=== PATIENT | male | born 1980 | race Caucasian/White ===

== ENCOUNTER → 2019-01-28 09:54 | Outpatient (CLI) | payer BC ==
[2015-12-22 23:35] VITALS: BMI 37.3
[~2019-01-28 09:54] MED LIST: BAYER CHEWABLE81 MG PO; IBUPROFEN400 MG PO; MOBIC7.5 MG PO; PLAVIX75 MG PO; PRILOSEC10 M1 PO
--- NOTE | 2019-02-01 13:55 | EC ---
PATIENT:FAIZAN CORTEZ JR DATE OF SERVICE: 01/28/19 SEX: M MEDICAL RECORD: [id number] DATE OF : [birth year] LOCATION:[facility] AGE OF PATIENT: 38 ADMISSION DATE: 01/28/19 REFERRING PHYSICIAN: INTERPRETING PHYSICIAN: TIAGO ONEAL MD ECHOCARDIOGRAM REPORT ECHO CHARGES 4 ECHO COMPLETE Date: 01/28/19 CLINICAL DIAGNOSIS: CAD ECHOCARDIOGRAPHIC MEASUREMENTS (adult normal given) AC root (d.<3.7cm) 3.9 cm LV Septum d (<1.2 cm> 1.5 cm Valve Excursion 1.9 cm LV Septum (systole) 1.6 cm Left Atria (s.<4.0cm> 4.2 cm LVPW d(<1.2cm) 1.5 cm RV (d.<2.3cm) 4.0 cm LVPW (sytole) 1.7 cm LV diastole(<5.6CM) 5.1 cm MV E-F(>70mm/sec) cm LV systole 3.5 cm LVOT Diameter 2.1 cm MV exc.(>10mm) 2.0 cm Est.ejection fraction (50-75%) % DOPPLER: LVIT cm/sec A 79.0 cm/sec E 104 cm/sec LA cm/sec RVSP 18 mmHg LVOT 128 cm/sec AOP1/2T m/s Asc. Ao 143 cm/sec RVOT 102 cm/sec RA cm/sec PA 132 cm/sec AV Gradient Peak 8.21 mmHg AV Mean 4.73 mmHg AV Area 3.2 cm MV Gradient Peak 5.43 mmHg MV Mean 2.39 mmHg MV Area cm COMMENTS: Surg Physician Asst: 2 ROSIO DIA Teacher Of Family And Consumer Science: 3 Dr. Garcia TAPE# PACS Pericardial Effusion N DATE OF SERVICE: Adequate 2D, color flow, spectral Doppler, and M-mode. LVH is present. LV internal dimension is normal. Wall motion is normal. EF is greater than or equal to 55%. Aortic valve is tricuspid. No evidence of stenosis by Doppler interrogation. Left atrium minimally dilated at 4.2 cm. Mitral valve shows no prolapse. Trace MR. Right-sided chambers grossly normal. Trace TR. TRANSINT:[id number] Voice Confirmation ID: [id number] DOCUMENT ID: [id number] ECHOCARDIOGRAM REPORT [id number] DUBOISE,FAIZAN W JR TIAGO ONEAL MD at 1355 CC: [id number] DICTATION DATE: 02/01/19 1313 CONVEYOR WEIGHER OPERATOR: 02/01/19 1326 DEP CLI 01/28/19 [id number] [place] [address]
== END | disposition home or self-care (01) ==
LOC: D.HCCARDIO 09:54
PROVIDERS: ATTEND Internal Medicine Interventional Cardiology
DX: I25.10 Atherosclerotic heart disease of native coronary artery without angina pectoris (principal)

== ENCOUNTER → 2020-02-03 08:41 | Outpatient (CLI) | payer BC ==
[2015-12-22 23:35] VITALS: BMI 37.3
--- NOTE | 2020-02-07 09:51 | EC ---
PATIENT:FAIZAN CORTEZ JR DATE OF SERVICE: 02/03/20 SEX: M MEDICAL RECORD: [id number] DATE OF : [birth year] [facility] AGE OF PATIENT: 39 ADMISSION DATE: 02/03/20 REFERRING PHYSICIAN: INTERPRETING PHYSICIAN: TIAGO ONEAL MD ECHOCARDIOGRAM REPORT ECHO CHARGES 4 ECHO COMPLETE Date: 02/03/20 CLINICAL DIAGNOSIS: CAD/ ASSESS EF AND VALVES ECHOCARDIOGRAPHIC MEASUREMENTS (adult normal given) AC root (d.<3.7cm) 3.6 cm LV Septum d (<1.2 cm> 1.4 cm Valve Excursion 1.9 cm LV Septum (systole) 1.6 cm Left Atria (s.<4.0cm> 3.4 cm LVPW d(<1.2cm) 1.4 cm RV (d.<2.3cm) 4.5 cm LVPW (sytole) 1.7 cm LV diastole(<5.6CM) 5.2 cm MV E-F(>70mm/sec) cm LV systole 3.5 cm LVOT Diameter 2.1 cm MV exc.(>10mm) 1.4 cm Est.ejection fraction (50-75%) % DOPPLER: LVIT cm/sec A 85.0 cm/sec E 76.0 cm/sec LA cm/sec RVSP 29 mmHg LVOT 115 cm/sec AOP1/2T m/s Asc. Ao 136 cm/sec RVOT 74 cm/sec RA cm/sec PA 105 cm/sec AV Gradient Peak 7.41 mmHg AV Mean 3.98 mmHg AV Area 2.8 cm MV Gradient Peak 3.05 mmHg MV Mean 1.50 mmHg MV Area cm COMMENTS: Ice Grinder: 2 ROSIO DIA Paper Tester: 3 Dr. Garcia TAPE# PACS Pericardial Effusion N DATE OF SERVICE: Adequate 2D, color flow imaging, spectral Doppler, and M-Mode. Borderline LVH. LV internal dimension is normal. Wall motion is normal. EF is greater than or equal to 55%. Aortic valve is tricuspid. No evidence of stenosis by Doppler interrogation. Left atrium is normal. Mitral valve shows no prolapse. Trace MR. Right-sided chambers are grossly normal. Trace TR. TRANSINT:[id number] Voice Confirmation ID: [id number] DOCUMENT ID: [id number] ECHOCARDIOGRAM REPORT [id number] FAIZAN CORTEZ JR, GREGORY A MD at 0951 CC: [id number] DICTATION DATE: 02/04/20 1041 SELENIUM PLANT OPERATOR: 02/04/204 DEP CLI 02/03/20 [id number] [place] [address]
== END | disposition home or self-care (01) ==
LOC: D.HCCECHO 08:41
PROVIDERS: ATTEND Internal Medicine Interventional Cardiology
DX: I25.10 Atherosclerotic heart disease of native coronary artery without angina pectoris (principal)